=== PATIENT | male | born 1995 | race Caucasian/White ===

== ENCOUNTER 2017-08-08 01:59 | Emergency (ER) | payer OTHER ==
[2017-08-08 02:07] VITALS: TEMP 36.4; O2SAT 96
[2017-08-08 02:32] LABS: BLOOD UREA NITROGEN 10 mg/dl (7-18); CARBON DIOXIDE 24 mmol/L (21-32); CHLORIDE 103 mmol/L (98-107); CREATININE 1.17 mg/dl (0.60-1.40); GLUCOSE 136 mg/dl (70-99); POTASSIUM 3.1 mmol/L (3.5-5.1); SODIUM 134 mmol/L (136-145)
[2017-08-08] MEDS ORDERED: POTASSIUM CHLORIDE 10 MEQ TABCR PO STA ×2 (04:23→04:30)
--- NOTE | 2017-08-08 06:52 | EMERGENCY ROOM VISIT NOTE ---
History First contact with patient: 02:01 Chief Complaint: ALCOHOL OVERDOSE Stated Complaint: ALCOHOL OVERDOSE Nursing Triage Summary: patient at a alliance party, had approx 1/5 vodka to himself, friends tried to watch patient on their own, he began vomitting and less responsive, so they called EMS History of Present Illness The patient is a 22 year old male who presents to the Emergency Room with complaints of alcohol intoxication. Patient is passed out and unable to obtain history. History is obtained from EMS. Patient was at a friend's house and drink a fifth of vodka. He was highly intoxicated and friends summoned EMS. They denied any trauma. No drug use. Review of Systems Unable to obtain secondary to altered mental status from alcohol intoxication Past Medical/Surgical History Unable to obtain secondary to altered mental status from alcohol intoxication Social History Smoking Status: Unknown if Ever Smoked Occupation Status: [employer] student Current/Historical Medications No Active Prescriptions or Reported Meds Physical Exam Vital Signs Date Time Temp Pulse Resp B/P (MAP) Pulse Ox O2 Delivery O2 Flow Rate FiO2 08/08/17 06:10 88 08/08/17 04:06 94 16 99/47 96 Room Air 08/08/17 02:07 96 Nasal Cannula 2.0 08/08/17 02:07 36.4 81 18 87/63 96 Room Air 08/08/17 02:07 96 Nasal Cannula 2.0 08/08/17 02:06 88 Physical Exam PHYSICAL EXAM: VITALS: Vitals are noted on the nurse's note and reviewed by myself. Vital signs mildly hypotensive from alcohol intoxication. GENERAL: Male with EtOH odor passed out, in no acute distress, nondiaphoretic, well-developed well-nourished. The patient is visibly intoxicated. SKIN: The skin was without obvious lacerations, abrasions, or rashes. There is no tenting of the skin. Capillary reflex less than 2 seconds. HEENT: Normocephalic, atraumatic. PERRLA. EOMI. Conjunctiva with mild injection without icterus. Tympanic membranes without erythema or effusion bilaterally no hemotympanum. External auditory canals are clear. Nares patent bilaterally. No epistaxis. Oropharynx without erythema or exudate. Uvula midline. Oral mucosal moist. No lymphadenopathy. Neck is supple without cervical spine tenderness. HEART: Regular rate and rhythm without murmurs gallops or rubs. Peripheral pulses 2+. LUNGS: Clear to auscultation bilaterally without wheezes, rales or rhonchi. ABDOMEN: Positive bowel sounds x 4. Normal tympanic percussion. Soft, nontender, without masses or organomegaly. MUSCULOSKELETAL: Gross motor function of the upper and lower extremities intact. NEUROLOGIC: The patient is visibly intoxicated. No neurological deficits appreciated Medical Decision & Procedures Laboratory Results 08/08/17 02:07 Test 08/08/17 02:07 Anion Gap 7.0 mmol/L (3-11) Estimated GFR () 102.7 Estimated GFR (Non- 88.6 BUN/Creatinine Ratio 9.0 (10-20) Calcium Level 8.0 mg/dl (8.5-10.1) Ethyl Alcohol mg/dL 293.0 mg/dl (0-3) ED Course Prior records/ancillary studies reviewed. Triage Nursing notes reviewed. Additional history obtained from EMS. The patient's history was concerning for altered mental status and a possible alcohol overdose. Differential diagnosis: Etiologies such as alcohol intoxication, toxicologic, infection, hypoglycemia, electrolyte abnormalities, cardiac sources, intracerebral event, neurologic, as well as others were entertained. Physical examination: As above. The patient is clinically intoxicated. no trauma noted. ER treatment provided: Monitoring Aspiration precautions The patient was frequently reassessed. Diagnostic interpretation by me: Cardiac monitoring did not reveal any evidence of dysrhythmia. The labs revealed hypokalemia. The patient's blood alcohol level was 293 mg/dL. The patient's history was reviewed once they were more coherent and their intoxication cleared. The patient states they have been in good health recently and had no medical complaints. The patient admitted to consuming alcohol. No additional concerning findings were noted. The patient complained of no symptoms to suggest assault. This appears to be consistent with an isolated overdose of alcohol. By the evaluation outlined above emergent etiologies such as trauma, infection, hypoglycemia, electrolyte abnormalities, cardiac sources, intracerebral event, neurologic,as well as others were deemed relatively unlikely. The patient was informed about the findings as listed above. The patient was counseled on the dangers of excessive alcohol use. I gave my usual and customary discussion regarding this issue. All questions were answered and the patient was pleased with the treatment. Return instructions were outlined and the patient was discharged in stable condition once their mental status improved and a safe destination was confirmed. Outpatient prescription management: None Referral: The patient was referred back to their primary care physician for follow-up in 2 to 3 days for a recheck of their current condition. Medical Decision As above Medication Reconcilliation Current Medication List: was personally reviewed by me Blood Pressure Screening Patient's blood pressure: Normal blood pressure Impression Primary Impression: Alcoholic intoxication Additional Impression: Hypokalemia Departure Information Dispostion Home / Self-Care Condition GOOD Prescriptions No Active Prescriptions or Reported Meds Patient Instructions My [facility] Additional Instructions Keep well-hydrated. Tylenol every 6 hours as needed for pain (Maximum 3000 mg Tylenol in 24 hr period). Follow up with family doctor and/or health services as needed. No driving for the next 24 hours. Recommend no alcohol for the next 48 hours and avoid binge drinking in the future. Return to ER sooner for chest pain, abdominal pain, worsening signs or symptoms or as needed. Problem Qualifiers Primary Impression: Alcoholic intoxication Complication of substance-induced condition: uncomplicated Qualified Codes: F10.920 - Alcohol use, unspecified with intoxication, uncomplicated
[2017-08-08] MEDS ORDERED: POTASSIUM CHLORIDE 10 MEQ TABCR ONE (06:53)
[2017-08-08 10:36] VITALS: BP 114/65; PULSE 90; O2SAT 98
== END 2017-08-08 10:48 | disposition home or self-care (01) ==
LOC: EDBD 01:59 → C.EDB 02:03
DX: T51.91XA Toxic effect of unspecified alcohol, accidental (unintentional), initial encounter (principal); E87.6 Hypokalemia; X58.XXXA Exposure to other specified factors, initial encounter